=== PATIENT | female | born 1960 | race Asian ===

== ENCOUNTER → 2018-11-11 | Outpatient (CLI) | payer OTHER ==
[~2018-11-11] MED LIST: REGADENOSON 0.4 MG/5 ML PF SYRINGE IVP ONE; SESTAMIBI TC99M/UD ISOTOPE 1 EA INJ INJ ONE
[2018-11-11 09:30] VITALS: BP 105/68
[2018-11-11 10:21] VITALS: BP 116/61
== END | disposition home or self-care (01) ==
LOC: MSR 08:36
PROVIDERS: ATTEND Internal Medicine Cardiovascular Disease
DX: I25.89 Other forms of chronic ischemic heart disease (principal)
CPT/HCPCS: 78452; 93017; A9500